=== PATIENT | male | born 1995 | race Caucasian/White ===

== ENCOUNTER 2016-10-30 12:42 | Observation (INO) | payer BC, OTHER ==
[2016-10-30] MEDS ORDERED: HYDROmorphone 1 MG/ML 1 ML SYRINGE IM STA (13:15)
[2016-10-30] MEDS ORDERED: ONDANSETRON 4 MG/2 ML VIAL IM STA (13:15)
[2016-10-30] MEDS ORDERED: SODIUM CHLORIDE 0.9% 1,000 ML IV STA (13:35)
--- NOTE | 2016-10-30 13:41 | ED ---
General Adult HPI <David Bartlett - Last Filed: 10/30/16 14:11> - General Source: patient, RN notes reviewed Mode of arrival: ambulatory Limitations: no limitations <Nadine Navarro - Last Filed: 10/30/16 14:14> - General Chief complaint: Urogenital Stated complaint: Male Time Seen by Provider: 10/30/16 13:06 - History of Present Illness Initial comments: 21-year-old male presents to the emergency department with a chief complaint of testicular pain. Patient states when he woke up he notices pain in the right testicle. Patient states THAT is severe pain across to have nausea and vomiting. Patient denies any burning or stinging with urination. Patient states he feels that his right testicle is somewhat swollen. Patient denies any cough cold runny nose with this. Patient states he was concerned due to his symptoms without that he should be evaluated. Patient denies any history of this in the past. Patient denies any concern for STDs. Patient denies any recent fever, chills, shortness of breath, chest pain, back pain, abdominal pain , nausea vomiting, numbness or tingling, dysuria or hematuria, constipation or diarrhea, headaches or visual changes, or any other current symptoms. (Nadine Navarro) - Related Data Home Medications Medication Instructions Recorded Confirmed No Known Home Medications [No 03/04/15 10/30/16 Known Home Medications] Allergies Allergy/AdvReac Type Severity Reaction Status Date / Time No Known Allergies Allergy Verified 10/30/16 12:58 Review of Systems ROS Other: All systems not noted in ROS Statement are negative. <David Bartlett - Last Filed: 10/30/16 14:11> ROS Other: All systems not noted in ROS Statement are negative. <Nadine Navarro - Last Filed: 10/30/16 14:14> ROS Statement: Those systems with pertinent positive or pertinent negative responses have been documented in the HPI. Past Medical History Past Medical History: No Reported History History of Any Multi-Drug Resistant Organisms: None Reported Past Surgical History: Orthopedic Surgery Additional Past Surgical History / Comment(s): left hand Past Psychological History: No Psychological Hx Reported Smoking Status: Never smoker Past Alcohol Use History: Occasional Past Drug Use History: None Reported <Nadine Navarro - Last Filed: 10/30/16 14:14> General Exam Limitations: no limitations General appearance: alert, in no apparent distress Head exam: Present: atraumatic, normocephalic, normal inspection Eye exam: Present: normal appearance, PERRL, EOMI. Absent: scleral icterus, conjunctival injection, periorbital swelling ENT exam: Present: normal exam, mucous membranes moist Neck exam: Present: normal inspection. Absent: tenderness, meningismus, lymphadenopathy Respiratory exam: Present: normal lung sounds bilaterally. Absent: respiratory distress, wheezes, rales, rhonchi, stridor Cardiovascular Exam: Present: regular rate, normal rhythm, normal heart sounds. Absent: systolic murmur, diastolic murmur, rubs, gallop, clicks GI/Abdominal exam: Present: soft, normal bowel sounds. Absent: distended, tenderness, guarding, rebound, rigid exam: Present: testicular tenderness (To the right side), vertical testicular lie, circumcision. Absent: urethral discharge, scrotal swelling Neurological exam: Present: alert, oriented X3 Psychiatric exam: Present: normal affect, normal mood Skin exam: Present: warm, dry, intact, normal color. Absent: rash <Nadine Navarro - Last Filed: 10/30/16 14:14> Course <David Bartlett - Last Filed: 10/30/16 14:11> <Nadine Navarro - Last Filed: 10/30/16 14:14> Vital Signs 10/30/16 12:45 Temperature 97.6 F Pulse Rate 87 Respiratory 18 Rate Blood Pressure 180/96 O2 Sat by Pulse 98 Oximetry - Reevaluation(s) Reevaluation #1: 10/30/16 13:54 Upon return from ultrasound the tech did inform us that she is concern for a testicular torsion. This time we did page urology we are pending the official ultrasound report at this time to activate the surgical team. (Nadine Navarro) Medical Decision Making <David Bartlett - Last Filed: 10/30/16 14:11> - Radiology Data Radiology results: report reviewed, image reviewed <Nadine Navarro - Last Filed: 10/30/16 14:14> - Medical Decision Making 21-year-old male presenting with acute onset right testicle pain. Patient was evaluated in the emergency department and sent for ultrasound of the right testicle to evaluate for suspicion of torsion. Ultrasound confirmed lack of blood flow to the right testicle. Case was discussed with urology and they will take the patient to the operating room for urgent surgery. (David Bartlett) 21-year-old male presents emergency department with a chief complaint of testicular pain. At this time appear to have a testicular torsion. Urology was called immediately and the patient will go to surgery. This is discussed with the family and they're in agreement with the plan. (Nadine Nvaarro) Disposition <David Bartlett - Last Filed: 10/30/16 14:11> Time of Disposition: 14:14 Decision Date: 10/30/16 Decision Time: 14:14 <Nadine Navarro - Last Filed: 10/30/16 14:14> Clinical Impression: Right testicular torsion Disposition: ADMITTED IP TO THIS [facility] Condition: Stable Referrals: Tino Owusu MD [STAFF PHYSICIAN] - 1-2 days
[2016-10-30] MEDS ORDERED: HYDROmorphone 1 MG/ML 1 ML SYRINGE IVP STA (13:56)
[2016-10-30] MEDS ORDERED: ONDANSETRON 4 MG/2 ML VIAL IVP STA (13:56)
--- NOTE | 2016-10-30 13:59 | US ---
EXAMINATION TYPE: US scrotum with doppler. Grayscale and color Doppler Duplex imaging performed of t he scrotum. DATE OF EXAM: 10/30/2016 COMPARISON: NONE CLINICAL HISTORY: Pain. rt testicular pain starting at 8 am. EXAM MEASUREMENTS: TESTICLES: Right Testicle: 5.1 x 3.0 x 3.1 cm Left Testicle: 5.4 x 2.7 x 3.4 cm EPIDIDYMIS HEAD: Right Epididymis: not identified cm Left Epididymis: 1.1 x 0.8 cm Doppler performed to assess for testicular vascularity; good bilateral color flow and waveforms are s een. There is no evidence of testicular torsion. No flow detected in right testicle, there is an area of heterogeneous echotexture medially/ inferior ly. Small amount of fluid around right testicle. Report was called to ARGELIA Navarro at the time of interpretation. IMPRESSION: No flow evident within the right testicle on color flow sonography. Fluid surrounds the t esticle. Torsion should be considered.
[2016-10-30 14:16] LABS: Basophils % (A) 0 %; CHCM 36.2; Eosinophils # (A) 0.1 k/uL (0-0.7); Eosinophils % (A) 1 %; HCT 42.5 % (39.0-53.0); HDW 2.71; HGB 15.2 gm/dL (13.0-17.5); INR 1.1 (<1.1); Luc # (Auto) 0.11; Luc % (Auto) 1; Lymphocytes # (A) 1.3 k/uL (1.0-4.8); Lymphocytes % (A) 9 %; MCH 28.8 pg (25.0-35.0); MCHC 35.9 g/dL (31.0-37.0); MCV 80.3 fL (80.0-100.0); Mean Platelet Volume 7.5; Monocytes # (A) 0.6 k/uL (0-1.0); Monocytes % (A) 4 %; Neutrophils # (A) 11.7 k/uL (1.3-7.7); Neutrophils % (A) 85 %; Prothrombin Time 11.2 sec (9.0-12.0); RBC 5.29 m/uL (4.30-5.90); RDW 13.1 % (11.5-15.5); WBC 13.9 k/uL (4.0-11.0)
[2016-10-30 14:21] LABS: ALT 33 U/L (21-72); AST 19 U/L (17-59); Alkaline Phosphatase 68 U/L (38-126); Anion Gap 13 mmol/L; Blood Urea Nitrogen 11 mg/dL (9-20); Calcium 9.7 mg/dL (8.4-10.2); Carbon Dioxide 23 mmol/L (22-30); Chloride 104 mmol/L (98-107); Glucose 121 mg/dL (74-99); Non-African American GFR(MDRD) >60 (>60 ml/min/1.73 sqM); Potassium 3.9 mmol/L (3.5-5.1); Sodium 140 mmol/L (137-145); Total Bilirubin 0.9 mg/dL (0.2-1.3)
[2016-10-30] MEDS ORDERED: LIDOCAINE 1% INJ 10MG/ML (20 ML MDV) ONE (15:21)
[2016-10-30] MEDS ORDERED: PROPOFOL 10 MG/ML 20 ML VIAL IV ONE (15:21)
[2016-10-30] MEDS ORDERED: fentaNYL (PF) 50 MCG/ML 2 ML AMP ONE (15:21)
[2016-10-30] MEDS ORDERED: KETOROLAC 30 MG/ML 1 ML VIAL ONE (15:21)
[2016-10-30] MEDS ORDERED: IV FLUID CONTINUATION 800 ML IV ONE (15:21)
[2016-10-30] MEDS ORDERED: ONDANSETRON 4 MG/2 ML VIAL ONE (15:21)
[2016-10-30] MEDS ORDERED: SUCCINYLCHOLINE CHLORIDE 100 MG/5 ML SYR IV ONE (15:21)
[2016-10-30] MEDS ORDERED: MIDAZOLAM 2 MG/2 ML VIAL ONE (15:21)
[2016-10-30] MEDS ORDERED: BUPIVACAINE (PF) 0.25% 30 ML VIAL SQ ONE ×2 (15:38→15:54)
--- NOTE | 2016-10-30 16:24 | P.GSHP ---
History of Present Illness H&P Date: 10/30/16 Chief Complaint: Right testicular pain The patient first noted right testicular pain when he woke up today at approximately 1045. He said he initially felt like someone had hit him in the right testicle. He said he went back to sleep and got up for work later in the morning but by that time the pain was rated as a 10 out of 10 and the testicle was swollen. He came to the emergency room where he was evaluated and right spermatic cord torsion was suspected. Duplex ultrasound of the scrotum confirmed lack of blood flow to the right testicle consistent with right spermatic cord torsion. The patient says that his pain has actually decreased somewhat since that time. The patient has no previous history of right testicular or left testicular pain. He has no history of undescended testicle. - Constitutional Constitutional: Denies chills, Denies fever - EENT Ears, nose, mouth and throat: Reports headache, Reports sore throat - Cardiovascular Cardiovascular: Denies chest pain, Denies high blood pressure, Denies palpitations, Denies shortness of breath - Respiratory Respiratory: Denies cough, Denies wheezing - Genitourinary (Male) Genitourinary: Reports testicular pain Past Medical History Past Medical History: No Reported History History of Any Multi-Drug Resistant Organisms: None Reported Past Surgical History: No Surgical Hx Reported, Orthopedic Surgery Additional Past Surgical History / Comment(s): left hand Past Anesthesia/Blood Transfusion Reactions: No Reported Reaction Past Psychological History: No Psychological Hx Reported Smoking Status: Never smoker Past Alcohol Use History: Occasional Past Drug Use History: None Reported Medications and Allergies Allergies Allergy/AdvReac Type Severity Reaction Status Date / Time No Known Allergies Allergy Verified 10/30/16 12:58 Surgical - Exam Vital Signs Temp Pulse Resp BP Pulse Ox 97.6 F 87 18 180/96 98 10/30/16 12:45 10/30/16 12:45 10/30/16 12:45 10/30/16 12:45 10/30/16 12:45 - General well developed, well nourished, moderate distress - ENT normal nares, no hearing loss, no congestion - Respiratory normal respiratory effort, clear to auscultation - Cardiovascular Rhythm: regular Abnormal Heart Sounds: no systolic murmur, no diastolic murmur - Abdomen Abdomen: soft, no tender - Genitourinary normal penis with no external lesions (There is) right: tender (There is moderate swelling of the right testicle and induration posteriorly) Results - Labs 10/30/16 14:00 10/30/16 14:00 Abnormal Lab Results - Last 24 Hours (Table) 10/30/16 10/30/16 Range/Units 14:00 14:00 WBC 13.9 H (4.0-11.0) k/uL Neutrophils # 11.7 H (1.3-7.7) k/uL Glucose 121 H (74-99) mg/dL Diabetes panel 10/30/16 Range/Units 14:00 Sodium 140 (137-145) mmol/L Potassium 3.9 (3.5-5.1) mmol/L Chloride 104 (98-107) mmol/L Carbon Dioxide 23 (22-30) mmol/L BUN 11 (9-20) mg/dL Creatinine 0.76 (0.66-1.25) mg/dL Glucose 121 H (74-99) mg/dL Calcium 9.7 (8.4-10.2) mg/dL AST 19 (17-59) U/L ALT 33 (21-72) U/L Alkaline Phosphatase 68 (38-126) U/L Total Protein 7.0 (6.3-8.2) g/dL Albumin 4.5 (3.5-5.0) g/dL Calcium panel 10/30/16 Range/Units 14:00 Calcium 9.7 (8.4-10.2) mg/dL Albumin 4.5 (3.5-5.0) g/dL Pituitary panel 10/30/16 Range/Units 14:00 Sodium 140 (137-145) mmol/L Potassium 3.9 (3.5-5.1) mmol/L Chloride 104 (98-107) mmol/L Carbon Dioxide 23 (22-30) mmol/L BUN 11 (9-20) mg/dL Creatinine 0.76 (0.66-1.25) mg/dL Glucose 121 H (74-99) mg/dL Calcium 9.7 (8.4-10.2) mg/dL Adrenal panel 10/30/16 Range/Units 14:00 Sodium 140 (137-145) mmol/L Potassium 3.9 (3.5-5.1) mmol/L Chloride 104 (98-107) mmol/L Carbon Dioxide 23 (22-30) mmol/L BUN 11 (9-20) mg/dL Creatinine 0.76 (0.66-1.25) mg/dL Glucose 121 H (74-99) mg/dL Calcium 9.7 (8.4-10.2) mg/dL Total Bilirubin 0.9 (0.2-1.3) mg/dL AST 19 (17-59) U/L ALT 33 (21-72) U/L Alkaline Phosphatase 68 (38-126) U/L Total Protein 7.0 (6.3-8.2) g/dL Albumin 4.5 (3.5-5.0) g/dL Assessment and Plan (1) Right testicular torsion Status: Acute Plan: Right scrotal exploration with probable bilateral orchidopexy. Time with Patient: Less than 30
--- NOTE | 2016-10-30 16:32 | P.OP ---
Date of Procedure: 10/30/16 Preoperative Diagnosis: Torsion of right spermatic cord Postoperative Diagnosis: Torsion of right spermatic cord Procedure(s) Performed: Scrotal exploration with detorsion of right spermatic cord and bilateral orchidopexy Implants: Anesthesia: GETA Pathology: none sent Condition: stable Disposition: same day Indications for Procedure: Right testicular pain with swelling and lack of blood flow to right testicle on Doppler ultrasound Operative Findings: 360 torsion of right spermatic cord Description of Procedure: The patient was taken the operating suite where adequate general anesthesia via orotracheal intubation was instituted. The patient was placed in the supine position. The hair on the anterior scrotum was clipped. The penis, scrotum and groins were then painted with Betadine solution and draped in a sterile fashion. A midline incision was made in the anterior scrotum. Bleeding vessels were controlled using electrocautery. The incision was carried through down into the right hydrocele space. The right testicle was examined as it was everted from the scrotum. There was lack of posterior attachments to the testicle and the testicle had twisted 360 degrees on the spermatic cord. The testicle was detorsed and observed and appeared to be viable. A right testicular orchiopexy was then performed by placing 3-0 silk sutures through the tunica albuginea in 4 quadrants anteriorly and attaching the sutures through the edge of the hydrocele sac and into the deep tissue of the scrotum. The left testicle was then exposed in a similar fashion and a left orchidopexy performed in an identical fashion using interrupted 3-0 silk. 0.25% Marcaine cane was then infiltrated around the spermatic cords bilaterally for postoperative pain control. The deep tissue of the scrotum was closed using running 3-0 chromic. The skin was closed using running 3-0 chromic placed in a vertical mattress fashion. Sterile dressing was then applied. The patient tolerated procedure well and left the operative room awake and in satisfactory condition blood loss was less than 5 mL there were no intraoperative complications patient was returned to recovery room awake and extubated and will be discharged later in the day. He will be seen back in follow-up in 7-10 days.
[2016-10-30] MEDS ORDERED: SODIUM CHLORIDE 0.9% 1,000 ML IV ONE (16:54)
[2016-10-30 17:15] VITALS: TEMP 98.1
[2016-10-30 18:52] VITALS: RESP 16
[2016-10-30 18:53] VITALS: BP 120/52; PULSE 96
== END 2016-10-30 18:40 | disposition home or self-care (01) ==
LOC: EC 12:42 → 3OBS 14:13
PROVIDERS: ADMIT Urology; ATTEND Urology
DX: N44.02 Intravaginal torsion of spermatic cord (principal)
CPT/HCPCS: 96374; 96375; 96361; 99285; 36415; 86900; 86901; 80053; 85025; 85610; 86850; 93975; 76870; 54600; 96372 ×2; G0378; J2250; J2405; J2001; J3010; J1885; J1170; J0330; J2704

== ENCOUNTER 2017-11-17 03:02 | Emergency (ER) | payer OTHER ==
[2017-11-17 03:10] VITALS: TEMP 98.5
[2017-11-17] MEDS ORDERED: IBUPROFEN 400 MG TAB PO STA (03:37)
--- NOTE | 2017-11-17 03:38 | ED ---
ENT HPI - General Chief complaint: ENT Stated complaint: ear pain Time Seen by Provider: 11/17/17 03:12 Source: patient, family Mode of arrival: ambulatory Limitations: no limitations - History of Present Illness Initial comments: This patient is 22-year-old man who is coming by his mother. He has been having days of pain at the sided TMJ . The pain does get worse when he moves his jaw including with chewing and sometimes with talking. He has been trying nonsteroidals at home without much relief. The patient denies any inciting trauma. He does occasionally feel a click when he moves the jaw. MD complaint: ear pain -: days(s) Severity: severe Quality: aching Consistency: constant Improves with: none Worsens with: eating, movement - Related Data Previous Rx's Medication Instructions Recorded Hydrocodone/Acetaminophen [[place] 1 each PO Q6HR PRN #10 tab 11/17/17 5-325] Ibuprofen [Motrin] 600 mg PO Q8HR PRN #20 tab 11/17/17 Allergies Allergy/AdvReac Type Severity Reaction Status Date / Time No Known Allergies Allergy Verified 11/17/17 03:10 Review of Systems ROS Statement: Those systems with pertinent positive or pertinent negative responses have been documented in the HPI. ROS Other: All systems not noted in ROS Statement are negative. Constitutional: Denies: fever, chills Eyes: Denies: eye pain, vision change ENT: Reports: as per HPI, ear pain Respiratory: Denies: cough, dyspnea Cardiovascular: Denies: chest pain Neurological: Denies: headache Past Medical History Past Medical History: No Reported History History of Any Multi-Drug Resistant Organisms: None Reported Past Surgical History: No Surgical Hx Reported, Orthopedic Surgery Additional Past Surgical History / Comment(s): left hand, testicuular torsion Past Anesthesia/Blood Transfusion Reactions: No Reported Reaction Past Psychological History: No Psychological Hx Reported Smoking Status: Never smoker Past Alcohol Use History: Occasional Past Drug Use History: None Reported General Exam Limitations: no limitations General appearance: alert, in no apparent distress Head exam: Present: atraumatic, normocephalic Eye exam: Present: normal appearance, PERRL, EOMI. Absent: scleral icterus, conjunctival injection ENT exam: Present: TM's normal bilaterally, normal external ear exam, other ( There is tenderness to palpation at the TMJ and there is palpable click when the patient opens close the mandible. The pharynx is otherwise normal there is no evidence of infection. ) Neck exam: Present: normal inspection, full ROM. Absent: tenderness, meningismus Neurological exam: Present: alert Skin exam: Present: warm, dry, intact, normal color. Absent: rash Course Vital Signs 11/17/17 11/17/17 11/17/17 03:04 04:10 04:57 Temperature 98.5 F Pulse Rate 62 55 L Respiratory 18 16 18 Rate Blood Pressure 130/88 129/74 O2 Sat by Pulse 98 100 Oximetry Medical Decision Making - Medical Decision Making Patient is 22-year-old man history and physical is consistent with TMJ. I suspect there may be disc subluxation. Computed tomography scan was obtained to ensure there was no bony injury. Patient has had relief of symptoms with medication and will follow up for MRI when that is available. Disposition Clinical Impression: TMJ arthralgia Disposition: HOME SELF-CARE Condition: Fair Instructions: Temporomandibular Disorder (ED) Prescriptions: Hydrocodone/Acetaminophen [[place] 5-325] 1 each PO Q6HR PRN #10 tab PRN Reason: Pain Ibuprofen [Motrin] 600 mg PO Q8HR PRN #20 tab PRN Reason: Pain Is patient prescribed a controlled substance at d/c from ED?: Yes When asked, does pt state using other controlled substances?: No If prescribed controlled substance>3 days was MAPS reviewed?: Prescribed <3 Days If Rx opioid, was Start Talking consent form obtained?: Yes Referrals: Tino Rodriguez DO [Primary Care Provider] - 1-2 days
[2017-11-17] MEDS ORDERED: HYDROcodone/APAP 5-325MG 1 EACH TAB PO STA (04:02)
--- NOTE | 2017-11-17 04:28 | CT ---
EXAM: CT Temporal Bones Without Intravenous Contrast CLINICAL HISTORY: right tmj pain after biting into sandwich, hx of teeth grinding, no prior TECHNIQUE: Axial computed tomography images of the temporomandibular joints without intravenous contrast. CTDI is 120.2 mGy and DLP is 893.2 mGy-cm. This CT exam was performed using one or more of the following dose reduction techniques: automated exposure control, adjustment of the mA and/or kV according to patient size, and/or use of iterative reconstruction technique. Coronal and sagittal reformatted images were created and reviewed. COMPARISON: No relevant prior studies available. FINDINGS: Bones/joints: Bilateral temporomandibular joints are within normal limits. No fracture or dislocation. No significant degenerative change. Soft tissues: Unremarkable. Sinuses: Paranasal sinuses are clear. 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 Otherwise mastoid air cells are clear. IMPRESSION: Normal appearing bilateral temporal mandibular joints. CT is insufficient for evaluation of disc pathology of temporomandibular joints. If this is of concern, dedicated MRI may help to further evaluate in a non-urgent setting if patient is a candidate..
[2017-11-17 04:58] VITALS: BP 129/74; PULSE 55; RESP 18
== END 2017-11-17 05:03 | disposition home or self-care (01) ==
LOC: EC 03:02
DX: M26.621 Arthralgia of right temporomandibular joint (principal); Z98.890 Other specified postprocedural states
CPT/HCPCS: 70486; 99283